=== PATIENT | female | born 1945 | race Caucasian/White ===

== ENCOUNTER 2017-08-19 14:38 | Emergency (ER) | payer MEDICARE ==
[~2017-08-19] VITALS: Ht 157.5 cm; Wt 90.7 kg
[~2017-08-19 14:38] MED LIST: CETI10 PO; CYAN500 PO; FLAX PO; LISHYD2012 PO; METF500 PO; NAPR220 PO
[2017-08-19] MEDS ORDERED: ZESTORETIC 20-251 EA PO (15:32)
[2017-08-19] MEDS ORDERED: Vitamin B-12250 MCG PO (15:33)
[2017-08-19] MEDS ORDERED: INSULANPEN SC (15:34)
[2017-08-19] MEDS ORDERED: NAPR220 PO (15:35)
[2017-08-19] MEDS ORDERED: Hair, Skin & N1 EACH PO (15:36)
[2017-08-19] MEDS ORDERED: Lovastatin20 MG PO (15:36)
[2017-08-19] MEDS ORDERED: GLUCOSAMINE (15:37)
[2017-08-19] MEDS ORDERED: CINNAMON (15:39)
[2017-08-19] MEDS ORDERED: FENUGREEK (15:39)
[2017-08-19] MEDS ORDERED: EPIPEN 2-P0.3 MG/0.3 IM (16:24)
[2017-08-19] MEDS ORDERED: Prednisone20 MG PO (16:24)
[2017-08-19] MEDS ORDERED: CLARITIN10 MG PO (16:24)
[2017-08-19] MEDS ORDERED: Pepcid40 MG PO (16:24)
== END 2017-08-19 16:41 | disposition home or self-care (01) ==
LOC: ER 14:38
DX: T63.441A Toxic effect of venom of bees, accidental (unintentional), initial encounter (principal); E11.9 Type 2 diabetes mellitus without complications; E78.5 Hyperlipidemia, unspecified; I10 Essential (primary) hypertension; Z88.0 Allergy status to penicillin; Z79.899 Other long term (current) drug therapy; Z88.8 Allergy status to other drugs, medicaments and biological substances
CPT/HCPCS: 94640; 96374; 96375; 99283-25; J1100; J3490

== ENCOUNTER 2020-08-07 01:17 | Observation (INO) | payer MEDICARE ==
[~2020-08-07] VITALS: Ht 157.5 cm; Wt 88.0 kg
[~2020-08-07 01:17] MED LIST changes: +CINNAMON; +CLARITIN10 MG PO; +EPIPEN 2-P0.3 MG/0.3 IM; +FENUGREEK; +GLUCOSAMINE; +Hair, Skin & N1 EACH PO; +INSULANPEN SC; +Lovastatin20 MG PO; +Pepcid40 MG PO; +Prednisone20 MG PO; +Vitamin B-12250 MCG PO; +ZESTORETIC 20-251 EA PO
[2020-08-07 01:55] LABS: BASOPHILS ABSOLUTE AUTO 0.04 K/mm3 (0.00-0.23); BASOPHILS PERCENT AUTO 1 % (0-2); EOSINOPHILS ABSOLUTE AUTO 0.38 K/mm3 (0.00-0.68); EOSINOPHILS PERCENT AUTO 5 % (0-6); Hematocrit 36.7 % (33.0-51.0); Hemoglobin 12.4 g/dL (11.5-16.0); IMMATURE GRAN ABSOLUTE AUTO 0.01 K/mm3 (0.00-0.10); IMMATURE GRAN PERCENT AUTO 0 % (0-1); LYMPHOCYTES ABSOLUTE AUTO 1.94 K/mm3 (0.84-5.20); LYMPHOCYTES PERCENT AUTO 24 % (21-46); MONOCYTES ABSOLUTE AUTO 0.83 K/mm3 (0.16-1.47); MONOCYTES PERCENT AUTO 10 % (4-13); Mean Corpuscular HGB 30.8 pg (26.0-34.0); Mean Corpuscular HGB Conc 33.8 g/dL (31.5-36.5); Mean Corpuscular Volume 91 fL (80-100); Mean Platelet Volume 10.8 fL (9.1-12.4); NEUTROPHILS ABSOLUTE AUTO 4.82 K/mm3 (1.96-9.15); NEUTROPHILS PERCENT AUTO 60 % (41-73); Platelet Count 220 K/mm3 (150-400); RDW Coefficient Variation 12.7 % (11.7-14.2); RDW Standard Deviation 41.9 fL (35.1-46.3); Red Blood Cell Count 4.03 M/mm3 (3.80-5.20); White Blood Cell Count 8.02 K/mm3 (4.00-11.30)
[2020-08-07 02:15] LABS: Albumin, Blood 3.9 g/dL (3.4-5.0); Albumin/Globulin Ratio 1.1 (0.8-1.8); Bilirubin, Total 0.4 mg/dL (0.1-1.0); Bun/Creatinine Ratio 15.7 (12.0-20.0); Calcium, Blood 9.5 mg/dL (8.5-10.1); Creatinine, Blood 1.21 mg/dL (0.40-1.00); Globulin, Blood 3.6 g/dL (2.2-4.0); Potassium, Blood 3.8 mmol/L (3.5-5.5); Total Protein, Blood 7.5 g/dL (6.4-8.2); Troponin I 0.114 ng/mL (0.000-0.040)
[2020-08-07] MEDS ORDERED: TOUJEO MAX300 UNIT/2 SQ (03:43)
[2020-08-07] MEDS ORDERED: TUMS500 MG PO (03:43)
[2020-08-07] MEDS ORDERED: NAPR220 PO (03:44)
[2020-08-07 11:00] LABS: BASOPHILS ABSOLUTE AUTO 0.02 K/mm3 (0.00-0.23); BASOPHILS PERCENT AUTO 0 % (0-2); EOSINOPHILS ABSOLUTE AUTO 0.15 K/mm3 (0.00-0.68); EOSINOPHILS PERCENT AUTO 1 % (0-6); Hematocrit 36.1 % (33.0-51.0); IMMATURE GRAN ABSOLUTE AUTO 0.03 K/mm3 (0.00-0.10); IMMATURE GRAN PERCENT AUTO 0 % (0-1); LYMPHOCYTES ABSOLUTE AUTO 1.34 K/mm3 (0.84-5.20); LYMPHOCYTES PERCENT AUTO 13 % (21-46); MONOCYTES ABSOLUTE AUTO 0.79 K/mm3 (0.16-1.47); MONOCYTES PERCENT AUTO 8 % (4-13); Mean Corpuscular HGB 30.5 pg (26.0-34.0); Mean Corpuscular HGB Conc 33.2 g/dL (31.5-36.5); Mean Corpuscular Volume 92 fL (80-100); Mean Platelet Volume 11.2 fL (9.1-12.4); NEUTROPHILS ABSOLUTE AUTO 8.23 K/mm3 (1.96-9.15); NEUTROPHILS PERCENT AUTO 78 % (41-73); Platelet Count 204 K/mm3 (150-400); RDW Coefficient Variation 12.4 % (11.7-14.2); RDW Standard Deviation 41.4 fL (35.1-46.3); Red Blood Cell Count 3.94 M/mm3 (3.80-5.20); White Blood Cell Count 10.56 K/mm3 (4.00-11.30)
[2020-08-07 11:18] LABS: Albumin, Blood 3.5 g/dL (3.4-5.0); Albumin/Globulin Ratio 0.9 (0.8-1.8); Bilirubin, Total 0.6 mg/dL (0.1-1.0); Bun/Creatinine Ratio 18.9 (12.0-20.0); Calcium, Blood 9.1 mg/dL (8.5-10.1); Creatinine, Blood 1.06 mg/dL (0.40-1.00); Globulin, Blood 3.7 g/dL (2.2-4.0); Total Protein, Blood 7.2 g/dL (6.4-8.2)
[2020-08-07 11:46] LABS: Troponin I 1.04 ng/mL (0.000-0.040)
--- NOTE | 2020-08-07 15:14 | NUR ---
DR SILVEIRA IN TO SEE PT. PLAN IS TO GO FOR A CARDIAC CATH TODAY.
--- NOTE | 2020-08-07 16:30 | NUR ---
Echocardiogram using 0.50ml fo Definity contrast performed.
--- NOTE | 2020-08-07 17:46 | NUR ---
PT LEFT FOR EMPLOYEE PLACEMENT SPECIALIST.
--- NOTE | 2020-08-07 17:50 | NUR ---
REPORT CALLED TO OLGA BATES IN PCU. PT HAS BEEN AAOX4 DURING SHIFT. PAIN REPORTED EPIGASTRIC AT A TOLERABLE /10. DENIES SOB OR CP DURING SHIFT. SHE HAS BEEN NPO DURING SHIFT. HEPARIN INFUSION PER EMAR. PT UP WITH SBY ASSIST TO BSC. VOIDING WELL. SWABS GIVEN FOR COMFORT.
--- NOTE | 2020-08-07 19:15 | NUR ---
ADMIT TO PCU: PATIENT IN WHEELCHAIR UPON ARRIVAL. ABLE TO STAND AND TRANSFER TO BED. STEADY ON FEET. RIGHT RADIAL SIGHT. NO SIGNS OF BLEEDING OR HEMATOMA. STRONG RADIAL PULSE, SENSATION IN FINGERS. ARM BOARD IN PLACE. VITAL SIGNS STABLE. TR BAND PLACED AT 1820 WITH 11ML. DENIES PAIN AT THIS TIME. CALL LIGHT IN REACH. ORIENTED TO ROOM AND UNIT. SON AT BEDSIDE. BLOOD SUGAR TAKEN. REPORTED OFF TO ONCOMING RN.
[2020-08-07 19:27] LABS: Troponin I 2.49 ng/mL (0.000-0.040)
--- NOTE | 2020-08-08 06:15 | NUR ---
SHIFT SUMMARY: BREE IS A&OX4. VSS, NO ACUTE EVENTS OVERNIGHT. WRIST BOARD TO R WRIST, TEGADERM OVER ANGIOGRAM SITE INTACT. SHE HAS REMAINED NPO, STANDBY ASSIST TO THE BATHROOM, URINATING AND PASSING GAS WITHOUT DIFFICULTY. SHE DID HAVE AN EPISODE OF NAUSEA FOR WHICH SHE REPORTED THE ZOFRAN TO BE EFFECTIVE. IV TO L AC PATENT. SHE DENIES CHEST PAIN OR SOB. NURSING CASE CONSULTANT NOTIFIED OF HER PRESENCE ON THE ADD-ON LIST, SURGICAL PACKET ON CHART. SHE IS LYING IN BED WITH THE CALL LIGHT IN REACH, WILL REPORT TO DAY SHIFT RN.
--- NOTE | 2020-08-08 08:14 | NUR ---
PT ALERT AND ORIENTED. VITAL SIGNS STABLE. ON ROOM AIR SATING ABOVE 94%. TELE SHOWING SINUS ISABELA WITH HR 40-50'S. PT STATES HR NORMAL FOR HER. DENIES CHEST PAIN/PRESSURE. BOWEL TONES HEARD. SKIN C/D/I. RIGHT RADIAL SIGHT, WITH ARM BOARD IN PLACE. NO SIGNS OF HEMATOMA OR ACTIVE BLEEDING. NO DRAINAGE UNDER TEGADERM. SIGHT REMAINS SOFT AND NONTENDER. UP IN CHAIR THIS AM. FLUIDS INFUSING. CALL LIGHT IN REACH. DENIES PAIN. WILL CONTINUE TO MONITOR.
--- NOTE | 2020-08-08 11:49 | NUR ---
NO ACUTE CHANGES. PROCEDURE CANCELLED FOR TODAY. PT MOVED TO FULL LIQUID DIET AND TOLERATING WELL. SLIGHT NAUSEA THIS AFTERNOON, MEDICATED WITH ZOFRAN. VITAL SIGNS REMAIN STABLE. WILL CONTINUE TO MONITOR.
[2020-08-08] MEDS ORDERED: CREON DR 12,001 EACH PO (12:32)
[2020-08-08] MEDS ORDERED: ASPI81CH PO (12:32)
[2020-08-08] MEDS ORDERED: ONDA4ODT MM (12:33)
[2020-08-08] MEDS ORDERED: METO25 PO (12:33)
[2020-08-08] MEDS ORDERED: Prinivil10 MG PO (12:33)
--- NOTE | 2020-08-08 13:48 | NUR ---
DISCHARGE: NO ACUTE CHANGES. DISCHARGE INSTRUCTIONS REVIEWED AND QUESTIONS ANSWERED. VITAL SIGNS REMAIN STABLE. REVIEWED NEW MEDICATIONS. SON AT BEDSIDE FOR DISCHARGE INSTRUCTIONS. DR. GREENBERG IN TO TALK WITH PATIENT WELL. PLAN FOR CARDIOLOGY FOLLOW UP AND THEN FOLLOW UP WITH DR. GREENBERG. IV TAKEN OUT PER PROTOCOL. PT LEFT UNIT WITH PERSONAL BELONGINGS. DISCHARGE WNL.
== END 2020-08-08 13:32 | disposition home or self-care (01) ==
LOC: ER 01:17 → SURS 01:18 → PCU 01:18 → SURS 01:18 → PCU 18:00
PROVIDERS: Student in an Organized Health Care Education/Training Program; ADMIT Internal Medicine
DX: K80.70 Calculus of gallbladder and bile duct without cholecystitis without obstruction (principal); I51.81 Takotsubo syndrome; I21.4 Non-ST elevation (NSTEMI) myocardial infarction; I25.119 Atherosclerotic heart disease of native coronary artery with unspecified angina pectoris; I12.9 Hypertensive chronic kidney disease with stage 1 through stage 4 chronic kidney disease, or unspecified chronic kidney disease; E11.22 Type 2 diabetes mellitus with diabetic chronic kidney disease; N17.9 Acute kidney failure, unspecified; N18.30 Chronic kidney disease, stage 3 unspecified; E78.5 Hyperlipidemia, unspecified; E66.01 Morbid (severe) obesity due to excess calories; Z68.36 Body mass index [BMI] 36.0-36.9, adult; Z79.4 Long term (current) use of insulin; Z88.0 Allergy status to penicillin; Z88.8 Allergy status to other drugs, medicaments and biological substances
CPT/HCPCS: 36415; 71046; 76705; 76937; 80053; 82150; 82550; 82947; 83690; 84484; 85025; 85730; 93005; 93010; 93458; 94762; 96374; 96375; 96376; 99152; 99285-25; A9270; C1769; C1894; C8929; G0378; J1644; J2250; J2270; J2405; J3010; J7030; J7050; Q9957; Q9967

== ENCOUNTER 2020-12-13 22:57 | Emergency (ER) | payer MEDICARE ==
[~2020-12-13] VITALS: Ht 154.9 cm; Wt 83.9 kg
[~2020-12-13 22:57] MED LIST changes: +ASPI81CH PO; +CREON DR 12,001 EACH PO; +METO25 PO; +ONDA4ODT MM; +Prinivil10 MG PO; +TOUJEO MAX300 UNIT/2 SQ; +TUMS500 MG PO
[2020-12-14 00:47] LABS: BASOPHILS ABSOLUTE AUTO 0.03 K/mm3 (0.00-0.23); BASOPHILS PERCENT AUTO 0 % (0-2); EOSINOPHILS ABSOLUTE AUTO 0.22 K/mm3 (0.00-0.68); EOSINOPHILS PERCENT AUTO 3 % (0-6); Hematocrit 36.7 % (33.0-51.0); Hemoglobin 12.4 g/dL (11.5-16.0); IMMATURE GRAN ABSOLUTE AUTO 0.02 K/mm3 (0.00-0.10); IMMATURE GRAN PERCENT AUTO 0 % (0-1); LYMPHOCYTES ABSOLUTE AUTO 1.93 K/mm3 (0.84-5.20); LYMPHOCYTES PERCENT AUTO 26 % (21-46); MONOCYTES ABSOLUTE AUTO 0.66 K/mm3 (0.16-1.47); MONOCYTES PERCENT AUTO 9 % (4-13); Mean Corpuscular HGB 30.4 pg (26.0-34.0); Mean Corpuscular HGB Conc 33.8 g/dL (31.5-36.5); Mean Corpuscular Volume 90 fL (80-100); Mean Platelet Volume 9.9 fL (9.1-12.4); NEUTROPHILS ABSOLUTE AUTO 4.71 K/mm3 (1.96-9.15); NEUTROPHILS PERCENT AUTO 62 % (41-73); Platelet Count 240 K/mm3 (150-400); RDW Coefficient Variation 12.4 % (11.7-14.2); RDW Standard Deviation 40.6 fL (35.1-46.3); Red Blood Cell Count 4.08 M/mm3 (3.80-5.20); White Blood Cell Count 7.57 K/mm3 (4.00-11.30)
[2020-12-14 01:08] LABS: Alanine Aminotransfer (ALT/SGP 20 U/L (12-78); Albumin, Blood 3.4 g/dL (3.4-5.0); Albumin/Globulin Ratio 0.7 (0.8-1.8); Alk Phos 65 U/L (50-136); Anion Gap 6 mmol/L (6-16); Aspartate Aminotrans (AST/SGOT 21 U/L (12-37); Bilirubin, Total 0.3 mg/dL (0.1-1.0); Blood Urea Nitrogen 16 mg/dL (8-24); Bun/Creatinine Ratio 18.6 (12.0-20.0); CO2, Blood 27 mmol/L (21-32); Calcium, Blood 9.3 mg/dL (8.5-10.1); Chloride, Blood 106 mmol/L (98-108); Creatinine, Blood 0.86 mg/dL (0.40-1.00); Globulin, Blood 4.6 g/dL (2.2-4.0); Glomerular Filtration Rate >60 (60-); Glucose, Blood 116 mg/dL (70-99); Potassium, Blood 3.8 mmol/L (3.5-5.5); Sodium, Blood 139 mmol/L (136-145); Troponin I <0.015 ng/mL (0.000-0.040)
== END 2020-12-14 01:38 | disposition home or self-care (01) ==
LOC: ER 22:57
PROVIDERS: Student in an Organized Health Care Education/Training Program
DX: R07.2 Precordial pain (principal); E11.9 Type 2 diabetes mellitus without complications; E78.5 Hyperlipidemia, unspecified; I10 Essential (primary) hypertension; Z88.0 Allergy status to penicillin; Z88.8 Allergy status to other drugs, medicaments and biological substances; Z79.82 Long term (current) use of aspirin; Z79.4 Long term (current) use of insulin; Z79.899 Other long term (current) drug therapy
CPT/HCPCS: 36415; 71046; 80053; 83690; 84484; 85025; 93005; 93010; 99285-25

== ENCOUNTER 2021-04-06 18:53 | Inpatient (IN) | payer MEDICARE ==
[~2021-04-06] VITALS: Ht 157.5 cm; Wt 87.3 kg
[2021-04-06 19:30] LABS: BASOPHILS ABSOLUTE AUTO 0.01 K/mm3 (0.00-0.23); BASOPHILS PERCENT AUTO 0 % (0-2); EOSINOPHILS ABSOLUTE AUTO 0.07 K/mm3 (0.00-0.68); EOSINOPHILS PERCENT AUTO 1 % (0-6); Hematocrit 37.8 % (33.0-51.0); Hemoglobin 12.8 g/dL (11.5-16.0); IMMATURE GRAN ABSOLUTE AUTO 0.04 K/mm3 (0.00-0.10); IMMATURE GRAN PERCENT AUTO 0 % (0-1); LYMPHOCYTES ABSOLUTE AUTO 0.91 K/mm3 (0.84-5.20); LYMPHOCYTES PERCENT AUTO 8 % (21-46); MONOCYTES ABSOLUTE AUTO 0.87 K/mm3 (0.16-1.47); MONOCYTES PERCENT AUTO 7 % (4-13); Mean Corpuscular HGB 30.6 pg (26.0-34.0); Mean Corpuscular HGB Conc 33.9 g/dL (31.5-36.5); Mean Corpuscular Volume 90 fL (80-100); Mean Platelet Volume 10.8 fL (9.1-12.4); NEUTROPHILS ABSOLUTE AUTO 9.79 K/mm3 (1.96-9.15); NEUTROPHILS PERCENT AUTO 84 % (41-73); Platelet Count 216 K/mm3 (150-400); RDW Coefficient Variation 12.5 % (11.7-14.2); RDW Standard Deviation 41.2 fL (35.1-46.3); Red Blood Cell Count 4.18 M/mm3 (3.80-5.20); White Blood Cell Count 11.69 K/mm3 (4.00-11.30)
[2021-04-06 19:59] LABS: Albumin, Blood 3.8 g/dL (3.4-5.0); Bun/Creatinine Ratio 17.9 (12.0-20.0); Calcium, Blood 9.4 mg/dL (8.5-10.1); Creatinine, Blood 1.06 mg/dL (0.40-1.00); Globulin, Blood 3.9 g/dL (2.2-4.0); Potassium, Blood 4.5 mmol/L (3.5-5.5); Total Protein, Blood 7.7 g/dL (6.4-8.2)
[2021-04-06] MEDS ORDERED: TOUJEO SOL300 UNIT/2 SQ (20:11)
[2021-04-06] MEDS ORDERED: HYDROCODONE-AC1 EA16 PO (20:12)
[2021-04-06 22:53] LABS: International Normalized Ratio 1.04; Prothrombin Time Results 10.9 Sec (9.7-11.5)
[2021-04-07] MEDS ORDERED: Lisinopril-Hct1 EAC4 PO (00:16)
[2021-04-07] MEDS ORDERED: Amlodipine Bes2.5 MG PO (00:16)
[2021-04-07] MEDS ORDERED: DOCU100 PO (00:19)
--- NOTE | 2021-04-07 01:37 | NUR ---
PT ARRIVED TO ROOM 229 FROM ER. PT A/O, DENIES DIZZINESS. PT C/O RUQ AND EPIGASTRIC PAIN. 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 ABD MILDLY DISTENDED, TENDER TO PALP. BT HYPO, PT DENIES N/V AT THIS TIME. PT ORIENTEDTO ROOM/CALL LIGHGT, NPO STATUS. AWAITING SURGICAL CONSULT.
[2021-04-07 04:38] LABS: BASOPHILS ABSOLUTE AUTO 0.02 K/mm3 (0.00-0.23); BASOPHILS PERCENT AUTO 0 % (0-2); EOSINOPHILS PERCENT AUTO 0 % (0-6); Hematocrit 35.7 % (33.0-51.0); IMMATURE GRAN ABSOLUTE AUTO 0.04 K/mm3 (0.00-0.10); IMMATURE GRAN PERCENT AUTO 0 % (0-1); LYMPHOCYTES ABSOLUTE AUTO 0.78 K/mm3 (0.84-5.20); LYMPHOCYTES PERCENT AUTO 7 % (21-46); MONOCYTES ABSOLUTE AUTO 0.64 K/mm3 (0.16-1.47); MONOCYTES PERCENT AUTO 5 % (4-13); Mean Corpuscular HGB 30.5 pg (26.0-34.0); Mean Corpuscular HGB Conc 33.6 g/dL (31.5-36.5); Mean Corpuscular Volume 91 fL (80-100); NEUTROPHILS ABSOLUTE AUTO 10.57 K/mm3 (1.96-9.15); NEUTROPHILS PERCENT AUTO 88 % (41-73); Platelet Count 194 K/mm3 (150-400); RDW Coefficient Variation 12.4 % (11.7-14.2); RDW Standard Deviation 41.1 fL (35.1-46.3); Red Blood Cell Count 3.94 M/mm3 (3.80-5.20); White Blood Cell Count 12.05 K/mm3 (4.00-11.30)
[2021-04-07 05:03] LABS: Albumin, Blood 3.5 g/dL (3.4-5.0); Albumin/Globulin Ratio 0.9 (0.8-1.8); Bun/Creatinine Ratio 21.2 (12.0-20.0); Calcium, Blood 8.7 mg/dL (8.5-10.1); Creatinine, Blood 1.04 mg/dL (0.40-1.00); Globulin, Blood 3.7 g/dL (2.2-4.0); Potassium, Blood 4.9 mmol/L (3.5-5.5); Total Protein, Blood 7.2 g/dL (6.4-8.2)
--- NOTE | 2021-04-07 07:21 | NUR ---
PT LAYING ON BACK RESTING IN BED THIS AM. VSS. PAIN MGD W/0.5MG IV DILAUDID W/REP RELIEF. PT HAD NO C/O N/V SINCE ARRIVING TO FLOOR. PT NPO, IVF CONT PER ORDERS. AWAITING SURGICAL CONSULT.
[2021-04-07 10:03] LABS: Influenza A, PCR NEGATIVE (NEGATIVE); Influenza B, PCR NEGATIVE (NEGATIVE); Resp Syncytial Virus, PCR NEGATIVE (NEGATIVE); SARS-Cov-2 (COVID-19) PCR, MMC NEGATIVE (NEGATIVE)
--- NOTE | 2021-04-07 13:59 | NUR ---
THE PATIENT WAS BROUGHT TO DAY SURGERY FOR HER PROCEDURE.
--- NOTE | 2021-04-07 16:11 | NUR ---
04/07/21 1611 Blaire Combs PATIENT RECEIVED ROCEPHIN 1000MG, TODAY, 04/07/21, AT 0805. NO INTRAOPERATIVE ANTIBIOTICS ORDERED PER DR. NAIK.
--- NOTE | 2021-04-07 19:27 | NUR ---
PT RETURNED FROM OR AT APROX 1845. VSS UPON ARRIVAL.
[2021-04-08 04:20] LABS: BASOPHILS ABSOLUTE AUTO 0.02 K/mm3 (0.00-0.23); BASOPHILS PERCENT AUTO 0 % (0-2); EOSINOPHILS PERCENT AUTO 0 % (0-6); Hematocrit 33.6 % (33.0-51.0); Hemoglobin 11.1 g/dL (11.5-16.0); IMMATURE GRAN PERCENT AUTO 1 % (0-1); LYMPHOCYTES ABSOLUTE AUTO 0.79 K/mm3 (0.84-5.20); LYMPHOCYTES PERCENT AUTO 4 % (21-46); MONOCYTES ABSOLUTE AUTO 0.77 K/mm3 (0.16-1.47); MONOCYTES PERCENT AUTO 4 % (4-13); Mean Corpuscular HGB 30.6 pg (26.0-34.0); Mean Corpuscular Volume 93 fL (80-100); Mean Platelet Volume 11.1 fL (9.1-12.4); NEUTROPHILS ABSOLUTE AUTO 16.19 K/mm3 (1.96-9.15); NEUTROPHILS PERCENT AUTO 91 % (41-73); Platelet Count 179 K/mm3 (150-400); RDW Standard Deviation 44.2 fL (35.1-46.3); Red Blood Cell Count 3.63 M/mm3 (3.80-5.20); White Blood Cell Count 17.87 K/mm3 (4.00-11.30)
[2021-04-08 04:41] LABS: Albumin, Blood 3.1 g/dL (3.4-5.0); Albumin/Globulin Ratio 0.9 (0.8-1.8); Bilirubin, Total 0.6 mg/dL (0.1-1.0); Calcium, Blood 8.4 mg/dL (8.5-10.1); Creatinine, Blood 1.26 mg/dL (0.40-1.00); Globulin, Blood 3.6 g/dL (2.2-4.0); Potassium, Blood 4.4 mmol/L (3.5-5.5); Total Protein, Blood 6.7 g/dL (6.4-8.2)
--- NOTE | 2021-04-08 04:45 | NUR ---
WINDOW CLERK SUMMARY PT BACK FROM [facility] AT START OF SHIFT. PT A BIT DROWSY AFTER COMING BACK FROM PROCEDURE BUT CLEARED QUICKLY. PT REPORTS LITTLE TO NO PAIN AND DENIES NEED FOR PAIN MEDICATION. STANDBY ASSIST UP TO THE BATHROOM. PT HAS VOIDED. TOLERATING CLEAR LIQUID DIET. VSS, WILL CONTINUE TO MONITOR.
[2021-04-08] MEDS ORDERED: Acetaminophen650 M1 PO (11:35)
--- NOTE | 2021-04-08 12:28 | NUR ---
DISCHARGE NOTE: PATIENT WAS EDUCATED ON DISCHARGE INSTRUCTIONS. SHE VERBALIZED UNDERSTANDING OF INSTRUCTIONS. IV WAS TAKEN OUT AND WNL. HARD PERSCRIPTION WAS PLACED IN INSTRUCTIONS FOLDER. PAIN IS MANAGED WITH PO PAIN MEDICATION. SHE IS TOLERATING PO INTAKE AND IS VOIDING WELL PASSED GAS. SHE IS DRESSED AND HAS ITEMS IN THE ROOM GATHERED. PATIENT STATED "I'LL JUST WALK OUT AND WAIT FOR MY SON OUTSIDE THE PATIENT ENTRANCE". SHE WALKED OUT TO THE EXIT AND IS WAITING OUTSIDE FOR HER SON TO DRIVE HER HOME.
[2021-04-09] MEDS ORDERED: DOCU100 PO (23:36)
== END 2021-04-08 12:25 | disposition home or self-care (01) | DRG 419 ==
LOC: ER 18:53 → SURS 23:51
PROVIDERS: Internal Medicine; Physician Assistant; Surgery; ADMIT Internal Medicine
PROC: BF14YZZ Fluoroscopy of Gallbladder, Bile Ducts and Pancreatic Ducts using Other Contrast (ICD-10-PCS; 2021-04-07)
PROC: 0FT44ZZ Resection of Gallbladder, Percutaneous Endoscopic Approach (ICD-10-PCS; principal; 2021-04-07 13:00)
DX: K85.10 Biliary acute pancreatitis without necrosis or infection (principal); I10 Essential (primary) hypertension; E11.9 Type 2 diabetes mellitus without complications; Z79.899 Other long term (current) drug therapy; Z79.82 Long term (current) use of aspirin; Z88.0 Allergy status to penicillin; Z88.8 Allergy status to other drugs, medicaments and biological substances; Z90.710 Acquired absence of both cervix and uterus
CPT/HCPCS: 0241U; 36415; 74300; 76705; 80053; 82947; 83690; 85025; 85610; 88304; 96374; 96375; 96376; 99285-25; A9270; C1729; J0696; J1100; J1170; J1815; J1885; J2250; J2370; J2405; J2704; J3010; J7030; J7120

== ENCOUNTER → 2023-01-24 | Outpatient (CLI) | payer MEDICARE ==
[~2023-01-24] MED LIST changes: +Acetaminophen650 M1 PO; +Amlodipine Bes2.5 MG PO; +DOCU100 PO; +HYDROCODONE-AC1 EA16 PO; +Lisinopril-Hct1 EAC4 PO; +TOUJEO SOL300 UNIT/2 SQ
== END ==
LOC: LAB 18:25 → LAB SHORT 18:25
DX: N39.0 Urinary tract infection, site not specified (principal)
CPT/HCPCS: 87077; 87086; 87186

== ENCOUNTER → 2023-02-19 | Outpatient (CLI) | payer MEDICARE | LOC: LAB 15:00 → LAB SHORT 15:00 | DX: N39.0 Urinary tract infection, site not specified (principal) | CPT/HCPCS: 87086 ==

== ENCOUNTER → 2023-08-17 | Outpatient (CLI) | payer MEDICARE ==
[2023-08-17 16:02] LABS: Alanine Aminotransfer (ALT/SGP 20 U/L (12-78); Albumin, Blood 3.5 g/dL (3.4-5.0); Albumin/Globulin Ratio 0.9 (0.8-1.8); Alk Phos 59 U/L (50-136); Anion Gap 7 mmol/L (3-11); Aspartate Aminotrans (AST/SGOT 24 U/L (12-37); Bilirubin, Total 0.3 mg/dL (0.1-1.0); Blood Urea Nitrogen 19 mg/dL (8-24); Bun/Creatinine Ratio 17.9 (12.0-20.0); CHOL/HDL RATIO 3.9; CO2, Blood 29 mmol/L (21-32); Chloride, Blood 104 mmol/L (98-108); Cholesterol 157 mg/dL (50-200); Creatinine, Blood 1.06 mg/dL (0.40-1.00); Globulin, Blood 4.1 g/dL (2.2-4.0); Glomerular Filtration Rate 54 (60-); Glucose, Blood 246 mg/dL (70-99); HDL Cholesterol 40 mg/dL (>39); LDL/HDL RATIO 2.2; Low Density Lipoprotein Chol 86 mg/dL (0-110); Potassium, Blood 4.2 mmol/L (3.5-5.5); Sodium, Blood 136 mmol/L (136-145); Total Protein, Blood 7.6 g/dL (6.4-8.2); Triglycerides 154 mg/dL (30-160); Very Low Density Lipoprot Chol 30 mg/dL (6-32)
== END | disposition home or self-care (01) ==
LOC: LAB 14:51 → LAB SHORT 14:51
PROVIDERS: Family Medicine
DX: E11.65 Type 2 diabetes mellitus with hyperglycemia (principal); E78.1 Pure hyperglyceridemia; R60.0 Localized edema; Z79.4 Long term (current) use of insulin
CPT/HCPCS: 80053; 80061; 83880

== ENCOUNTER → 2023-11-21 | Outpatient (CLI) | payer MEDICARE ==
[2023-11-21 15:03] LABS: Albumin, Blood 3.8 g/dL (3.4-5.0); Albumin/Globulin Ratio 0.9 (0.8-1.8); Bilirubin, Total 0.6 mg/dL (0.1-1.0); Bun/Creatinine Ratio 23.8 (12.0-20.0); Calcium, Blood 9.3 mg/dL (8.5-10.1); Creatinine, Blood 1.01 mg/dL (0.40-1.00); Globulin, Blood 4.1 g/dL (2.2-4.0); Potassium, Blood 4.3 mmol/L (3.5-5.5); Total Protein, Blood 7.9 g/dL (6.4-8.2)
[2023-11-21 19:49] LABS: Microalb/Creat Ratio UR, Rand 17.425 mg/g (0.000-30.000); Microalbumin, Random Urine 29.1 mg/L (0.000-20.000)
== END | disposition home or self-care (01) ==
LOC: LAB SHORT 13:31 → LAB 13:31
PROVIDERS: Family Medicine
DX: E11.9 Type 2 diabetes mellitus without complications (principal); R00.1 Bradycardia, unspecified
CPT/HCPCS: 80053; 82043; 82570; 83036; 83735

== ENCOUNTER 2024-02-06 10:14 | Emergency (ER) | payer MEDICARE ==
[~2024-02-06] VITALS: Ht 154.9 cm; Wt 88.0 kg
[2024-02-06 10:19] VITALS: BP 169/70
[2024-02-06] MEDS ORDERED: Naproxen 250 MG TAB PO ONE (10:40)
[2024-02-06] MEDS ORDERED: Naprosyn500 MG PO (11:25)
[2024-02-06] MEDS ORDERED: HYDR1TAB94 PO (11:25)
== END 2024-02-06 11:36 | disposition home or self-care (01) ==
LOC: ER 10:14
DX: M10.9 Gout, unspecified (principal); I10 Essential (primary) hypertension; E11.9 Type 2 diabetes mellitus without complications; Z79.4 Long term (current) use of insulin; Z79.82 Long term (current) use of aspirin; Z79.899 Other long term (current) drug therapy; Z88.0 Allergy status to penicillin; Z88.8 Allergy status to other drugs, medicaments and biological substances
CPT/HCPCS: 73630; 99283-25; A9270

== ENCOUNTER → 2024-06-13 | Outpatient (CLI) | payer MEDICARE ==
[~2024-06-13] MED LIST changes: +HYDR1TAB94 PO; +Naprosyn500 MG PO
[2024-06-13 20:57] LABS: Microalb/Creat Ratio UR, Rand 6.711 mg/g (0.000-30.000); Microalbumin, Random Urine 10.2 mg/L (0.000-20.000)
== END ==
LOC: LAB 18:45 → LAB SHORT 18:45
PROVIDERS: Family Medicine
DX: E11.9 Type 2 diabetes mellitus without complications (principal)
CPT/HCPCS: 82043; 82570

== ENCOUNTER → 2024-06-19 | Outpatient (CLI) | payer MEDICARE ==
[2024-06-19 19:36] LABS: BASOPHILS ABSOLUTE AUTO 0.03 K/mm3 (0.00-0.23); BASOPHILS PERCENT AUTO 0 % (0-2); EOSINOPHILS ABSOLUTE AUTO 0.28 K/mm3 (0.00-0.68); EOSINOPHILS PERCENT AUTO 4 % (0-6); Hematocrit 37.2 % (33.0-51.0); Hemoglobin 12.2 g/dL (11.5-16.0); IMMATURE GRAN ABSOLUTE AUTO 0.02 K/mm3 (0.00-0.10); IMMATURE GRAN PERCENT AUTO 0 % (0-1); LYMPHOCYTES ABSOLUTE AUTO 1.44 K/mm3 (0.84-5.20); LYMPHOCYTES PERCENT AUTO 20 % (21-46); MONOCYTES ABSOLUTE AUTO 0.63 K/mm3 (0.16-1.47); MONOCYTES PERCENT AUTO 9 % (4-13); Mean Corpuscular HGB 30.7 pg (26.0-34.0); Mean Corpuscular HGB Conc 32.8 g/dL (31.5-36.5); Mean Corpuscular Volume 94 fL (80-100); Mean Platelet Volume 11.2 fL (9.1-12.4); NEUTROPHILS ABSOLUTE AUTO 4.98 K/mm3 (1.96-9.15); NEUTROPHILS PERCENT AUTO 68 % (41-73); Platelet Count 220 K/mm3 (150-400); RDW Coefficient Variation 12.7 % (11.7-14.2); RDW Standard Deviation 43.8 fL (35.1-46.3); Red Blood Cell Count 3.97 M/mm3 (3.80-5.20); White Blood Cell Count 7.38 K/mm3 (4.00-11.30)
[2024-06-20 05:01] LABS: Alanine Aminotransfer (ALT/SGP 24 U/L (12-78); Albumin, Blood 3.7 g/dL (3.4-5.0); Albumin/Globulin Ratio 1.1 (0.8-1.8); Alk Phos 57 U/L (50-136); Anion Gap 7 mmol/L (3-11); Aspartate Aminotrans (AST/SGOT 23 U/L (12-37); Bilirubin, Total 0.6 mg/dL (0.1-1.0); Blood Urea Nitrogen 18 mg/dL (8-24); Bun/Creatinine Ratio 17.3 (12.0-20.0); CHOL/HDL RATIO 3.3; CO2, Blood 28 mmol/L (21-32); Calcium, Blood 9.1 mg/dL (8.5-10.1); Chloride, Blood 105 mmol/L (98-108); Cholesterol 150 mg/dL (50-200); Creatinine, Blood 1.04 mg/dL (0.40-1.00); Globulin, Blood 3.5 g/dL (2.2-4.0); Glomerular Filtration Rate 55 (60-); Glucose, Blood 219 mg/dL (70-99); HDL Cholesterol 46 mg/dL (>39); LDL/HDL RATIO 1.6; Low Density Lipoprotein Chol 71 mg/dL (0-110); Magnesium, Blood 1.7 mg/dL (1.6-2.4); Potassium, Blood 4.1 mmol/L (3.5-5.5); Sodium, Blood 136 mmol/L (136-145); Total Protein, Blood 7.2 g/dL (6.4-8.2); Triglycerides 163 mg/dL (30-160); Very Low Density Lipoprot Chol 32 mg/dL (6-32)
== END ==
LOC: LAB 16:53 → LAB SHORT 16:53
PROVIDERS: Family Medicine
DX: Z00.01 Encounter for general adult medical examination with abnormal findings (principal); E11.9 Type 2 diabetes mellitus without complications; R00.2 Palpitations; Z79.4 Long term (current) use of insulin
CPT/HCPCS: 80053; 80061; 83735; 85025

== ENCOUNTER → 2025-01-14 | Outpatient (CLI) | payer MEDICARE ==
[2025-01-14 15:50] LABS: Alanine Aminotransfer (ALT/SGP 31.0 U/L (12-78); Albumin, Blood 4.1 g/dL (3.4-5.0); Albumin/Globulin Ratio 1.1 (0.8-1.8); Anion Gap 7.0 mmol/L (3-11); Aspartate Aminotrans (AST/SGOT 20.0 U/L (12-37); Bilirubin, Total 0.6 mg/dL (0.1-1.0); Blood Urea Nitrogen 20.0 mg/dL (8-24); CO2, Blood 31.0 mmol/L (21-32); Calcium, Blood 9.6 mg/dL (8.5-10.1); Chloride, Blood 104.0 mmol/L (98-108); Creatinine, Blood 1.01 mg/dL (0.40-1.00); Globulin, Blood 3.6 g/dL (2.2-4.0); Glucose, Blood 163.0 mg/dL (70-99); Potassium, Blood 4.5 mmol/L (3.5-5.5); Sodium, Blood 137.0 mmol/L (136-145); Total Protein, Blood 7.7 g/dL (6.4-8.2)
== END ==
LOC: LAB 13:54 → LAB SHORT 13:54
DX: E11.22 Type 2 diabetes mellitus with diabetic chronic kidney disease (principal); N18.31 Chronic kidney disease, stage 3a
CPT/HCPCS: 80053; 83036